=== PATIENT | male | born 1940 | race African-American/Black ===

== ENCOUNTER 2020-06-24 12:10 | Emergency (ER) | payer OTHER ==
[~2020-06-24] VITALS: Ht 185.4 cm; Wt 95.0 kg
[2020-06-24] MEDS ORDERED: ENALAPRIL 1.25MG/ML VIAL 1ML IV NR (14:15)
[2020-06-24] MEDS ORDERED: ENALAPRIL 2.5MG/2ML VIAL 2ML IV ONE (14:15)
[2020-06-24] MEDS ORDERED: BARIUM SULFATE 176 GM SUSP.RECON ONE (15:14)
[2020-06-24 15:30] VITALS: BP 153/67
== END 2020-06-24 17:55 | disposition home or self-care (01) ==
LOC: ER 12:36
DX: T17.908A Unspecified foreign body in respiratory tract, part unspecified causing other injury, initial encounter (principal); E11.9 Type 2 diabetes mellitus without complications; I10 Essential (primary) hypertension; X58.XXXA Exposure to other specified factors, initial encounter; Y93.89 Activity, other specified; Y92.89 Other specified places as the place of occurrence of the external cause; Y99.8 Other external cause status
CPT/HCPCS: 74220; 93005; 96374; 99283; J3490

== ENCOUNTER 2022-07-03 05:24 | Emergency (ER) | payer OTHER ==
[~2022-07-03] VITALS: Ht 180.3 cm; Wt 97.0 kg
[2022-07-03 05:27] VITALS: O2SAT 98
[2022-07-03] MEDS ORDERED: ASPIRIN 81MG TABLET PO ONE (05:45)
[2022-07-03] MEDS ORDERED: NITROGLYCERIN 0.4MG TABLET SL SL PRN (05:45)
[2022-07-03 06:09] LABS: BASOPHILS % 1.7 % (0.0-2.0); DIFFERENTIAL COMMENT 0; EOSINOPHILS % 12.4 % (0.0-5.0); HEMATOCRIT. 35.4 % (42.0-52.0); HEMOGLOBIN. 11.7 g/dL (14.0-18.0); LYMPHOCYTES % 33.1 % (20.0-50.0); MEAN CORPUSCULAR HEMOGLOBIN 23.7 pg (28.0-32.0); MEAN CORPUSCULAR VOLUME 71.7 fL (80.0-94.0); MEAN PLATELET VOLUME 9.8 fl (7.4-10.4); MONOCYTES % 8.7 % (2.0-8.0); NEUTROPHILS % 44.1 % (40.0-76.0); PLATELET 144 x1000/uL (130-400); RED BLOOD CELL COUNT 4.94 mill/uL (4.7-6.1); RED CELL DISTRIBUTION WIDTH 15.6 % (11.6-14.6); WHITE BLOOD COUNT 6.1 x1000/uL (4.5-11.0)
[2022-07-03 06:12] LABS: CHLORIDE 108 mEq/L (98-107); INDEX HEMOLYSI 1 (1-3); INDEX ICTERIC 1 (1-4); INDEX LIPEMIC 1 (1-3); POTASSIUM 4.3 mEq/L (3.5-5.1); SODIUM 138 mEq/L (136-145)
[2022-07-03] MEDS ORDERED: ACETAMINOPHEN WITH CODEINE 120-12MG/5ML UDC PO ONE (06:15)
[2022-07-03 06:22] LABS: ALANINE AMINOTRANSFERASE 31 IU/L (13-61); ALBUMIN 3.4 g/dL (3.4-5.0); ASPARTATE AMINOTRANSFERASE 21 IU/L (15-37); BILIRUBIN TOTAL 0.3 mg/dL (0.1-1.0); CALCIUM 8.8 mg/dL (8.5-10.1); CARBON DIOXIDE 25 mEq/L (21-32); CREATININE 0.8 mg/dL (0.6-1.3); GLUCOSE 165 mg/dL (70-105); NT PRO B-TYPE NATRIURETIC PEP 42 pg/mL (5-125); PROTEIN TOTAL 7.1 g/dL (6.0-8.3); TROPONIN I HIGH SENSITIVITY 9 ng/L (<78); UREA NITROGEN BLOOD 11 mg/dL (7-21)
[2022-07-03 08:00] VITALS: BP 142/66; PULSE 57; RESP 17; TEMP 98.7
[2022-07-03] MEDS ORDERED: BENZ200C52 MT (08:05)
[2022-07-03 08:23] LABS: TROPONIN I HIGH SENSITIVITY 9 ng/L (<78)
== END 2022-07-03 08:29 | disposition home or self-care (01) ==
LOC: ER 05:24
DX: R07.89 Other chest pain (principal); J45.909 Unspecified asthma, uncomplicated; E11.9 Type 2 diabetes mellitus without complications; I10 Essential (primary) hypertension; Z20.822 Contact with and (suspected) exposure to COVID-19
CPT/HCPCS: 99285; 71045; 87426; 80053; 83880; 85025; 84484; 36415; 93005; C9803

== ENCOUNTER 2022-09-09 21:53 | Emergency (ER) | payer OTHER ==
[~2022-09-09] VITALS: Ht 172.7 cm; Wt 82.0 kg
[~2022-09-09 21:53] MED LIST: BENZ200C52 MT
[2022-09-09 21:56] VITALS: O2SAT 99
[2022-09-09] MEDS ORDERED: ACETAMINOPHEN 325MG TABLET PO ONE (22:30)
[2022-09-09] MEDS ORDERED: SODIUM CHLORIDE 0.9% 1000ML BAG (SEPSIS BOLUS) IV ONE (22:30)
[2022-09-09 23:15] LABS: BASOPHILS % 0.2 % (0.0-2.0); DIFFERENTIAL COMMENT 0; HEMATOCRIT. 31.3 % (42.0-52.0); HEMOGLOBIN. 10.3 g/dL (14.0-18.0); LYMPHOCYTES % 13.1 % (20.0-50.0); MEAN CORPUSCULAR HEMOGLOBIN 23.4 pg (28.0-32.0); MEAN CORPUSCULAR HGB CONC 32.8 g/dL (31.0-37.0); MEAN CORPUSCULAR VOLUME 71.5 fL (80.0-94.0); MEAN PLATELET VOLUME 10.9 fl (7.4-10.4); MONOCYTES % 5.1 % (2.0-8.0); NEUTROPHILS % 81.6 % (40.0-76.0); PLATELET 88 x1000/uL (130-400); RED BLOOD CELL COUNT 4.38 mill/uL (4.7-6.1); WHITE BLOOD COUNT 7.7 x1000/uL (4.5-11.0)
[2022-09-09 23:19] LABS: CLARITY URINE CLEAR (CLEAR); COLOR URINE YELLOW (YELLOW); GLUCOSE URINE 3+ (NEGATIVE); KETONES URINE NEGATIVE (NEGATIVE); LEUKOCYTE ESTERASE URINE NEGATIVE (NEGATIVE); NITRITE URINE NEGATIVE (NEGATIVE); OCCULT BLOOD URINE NEGATIVE (NEGATIVE); PROTEIN URINE NEGATIVE (NEGATIVE); SPECIFIC GRAVITY URINE 1.031 (1.005-1.030); UROBILINOGEN URINE 0.2 E.U./dL (0.2-1.0)
[2022-09-09 23:22] LABS: PROTHROMBIN TIME 11.2 sec (9.6-11.0)
[2022-09-09 23:29] LABS: CHLORIDE 104 mEq/L (98-107); INDEX HEMOLYSI 1 (1-3); INDEX ICTERIC 1 (1-4); INDEX LIPEMIC 1 (1-3); POTASSIUM 4.3 mEq/L (3.5-5.1); SODIUM 134 mEq/L (136-145)
[2022-09-09 23:36] LABS: *AMPHETAMINES SCREEN URINE NEGATIVE (NEGATIVE); *BARBITURATES SCREEN URINE NEGATIVE (NEGATIVE); *BENZODIAZEPINES SCREEN URINE NEGATIVE (NEGATIVE); *COCAINE SCREEN URINE NEGATIVE (NEGATIVE); CANNABINOID URINE SCREEN NEGATIVE (NEGATIVE); ECSTASY MDMA SCREEN URINE NEGATIVE (NEGATIVE); METHADONE URINE SCREEN NEGATIVE (NEGATIVE); OPIATES URINE SCREEN NEGATIVE (NEGATIVE); PHENCYCLIDINE URINE SCREEN NEGATIVE (NEGATIVE)
[2022-09-09 23:37] LABS: ALANINE AMINOTRANSFERASE 39 IU/L (13-61); ALBUMIN 2.9 g/dL (3.4-5.0); ASPARTATE AMINOTRANSFERASE 17 IU/L (15-37); BETA HYDROXYBUTYRATE 0.1 mMol/L (0.0-0.3); BILIRUBIN TOTAL 0.3 mg/dL (0.1-1.0); CALCIUM 8.4 mg/dL (8.5-10.1); CARBON DIOXIDE 24 mEq/L (21-32); CREATINE KINASE 94 IU/L (39-308); CREATININE 0.7 mg/dL (0.6-1.3); ETHANOL BLOOD < 10 mg/dL (-10); GLUCOSE 383 mg/dL (70-105); TROPONIN I HIGH SENSITIVITY 7 ng/L (<78); UREA NITROGEN BLOOD 19 mg/dL (7-21)
[2022-09-09 23:49] LABS: BACTERIA URINE NONE SEEN; RBC URINE 0-2 /hpf (0-2); SQUAMOUS EPITHELIAL CELL URINE NONE SEEN /lpf (RARE/1+); WBC URINE 0-2 /hpf (0-2)
[2022-09-10] MEDS ORDERED: METFORMIN HCL 500MG TABLET PO ONE (00:15)
[2022-09-10] MEDS ORDERED: ACET-2708 MT (02:53)
[2022-09-10 02:55] VITALS: BP 168/85; PULSE 63; RESP 17; TEMP 98.6
== END 2022-09-10 03:14 | disposition home or self-care (01) ==
LOC: ER 21:53
DX: E11.65 Type 2 diabetes mellitus with hyperglycemia (principal); J45.909 Unspecified asthma, uncomplicated; I10 Essential (primary) hypertension; R51.9 Headache, unspecified; Z79.84 Long term (current) use of oral hypoglycemic drugs
CPT/HCPCS: 80053; 80305; 81003; 82010; 80320; 82550; 82962 ×2; 83605; 83690; 85025; 85610; 87040; 87086; 84484; 36415; 84145; 71045; 93005; 96360; 99285; 70450; J7030; G0480